=== PATIENT | male | born 1955 | race African-American/Black ===

== ENCOUNTER 2021-10-27 07:48 | Emergency (ER) | payer MEDICAID ==
[~2021-10-27] VITALS: Ht 172.7 cm; Wt 69.0 kg
[2021-10-27 12:55] VITALS: BP 155/94
== END 2021-10-27 13:28 | disposition home or self-care (01) ==
LOC: ER 08:10
DX: S09.8XXA Other specified injuries of head, initial encounter (principal); W18.39XA Other fall on same level, initial encounter; Y93.89 Activity, other specified; Y92.89 Other specified places as the place of occurrence of the external cause; Y99.8 Other external cause status; M25.551 Pain in right hip; I10 Essential (primary) hypertension; F17.290 Nicotine dependence, other tobacco product, uncomplicated
CPT/HCPCS: 72192; 73502; 93005; 99285